=== PATIENT | male | born 1980 | race Caucasian/White ===

== ENCOUNTER 2019-12-29 23:29 | Emergency (ER) | payer BC, SELFPAY ==
--- NOTE | ~2019-12-29 | XR_ITS ---
EXAMINATION: XR chest 1V portable DATE: 12/30/2019 00:19 INDICATION: Palpitations. TECHNIQUE: A single frontal view of the chest was obtained. COMPARISON: None. FINDINGS: The chest demonstrates clear lungs without pneumonia, pleural effusion, or pneumothorax. Th e heart size is normal. IMPRESSION: 1. No acute cardiopulmonary disease. Reviewed, dictated and finalized at location A. [facility]
[2019-12-29 23:36] VITALS: BP 128/112; PULSE 90; RESP 16; TEMP 35.9; O2SAT 99
--- NOTE | 2019-12-29 23:40 | ED.ARRPALP ---
HPI - Arrhythmia/Palpitations General Chief Complaint: Arrhythmia/Palpitations Stated Complaint: irreg heart rate Time Seen by Provider: 12/29/19 23:37 Source: patient and RN notes reviewed Mode of arrival: ambulatory Limitations: no limitations History of Present Illness HPI narrative: Pt is a 39 y/o male who presents to the ED with c/o palpitations starting this evening. He notes that he was laying down this evening when his heart suddenly began fluttering. Pt denies any CP, SOB, or other symptoms accompanying his palpitations. He states that he has no Hx of thyroid complications. According to the nurse, he has had recent life stress and has consumed caffeine this evening. Pt denies any recent drug use. MD complaint: irregular heart beat Context: occurred during rest Associated symptoms: denies other symptoms Related Data Allergies Allergy/AdvReac Type Severity Reaction Status Date / Time No Known Allergies Allergy Verified 12/29/19 23:54 Review of Systems Review of Systems: Narrative: CONSTITUTIONAL: Denies fever, chills, or sweats. ENT: Denies rhinorrhea, congestion, sore throat, or otalgia. CARDIOVASCULAR: Denies chest pain or edema. Reports palpitations. RESPIRATORY: Denies cough or dyspnea. All systems reviewed & are unremarkable except as noted in HPI and below PMFSH Past Medical History Medical History Healthy adult male Surgical History Surgical History No significant past surgical history Social History Social History Substance use: never Exam Narrative: Exam Narrative: GENERAL: Well-appearing, well-nourished, and in no acute distress. HEAD: Normocephalic, atraumatic. EYES: PERRLA and EOMI. ENT: Nares clear, no rhinorrhea or epistaxis. Mucous membranes moist. NECK: Supple. CHEST: Clear to auscultation. No respiratory distress. HEART: Tachycardic and irregularly irregular rhythm. No murmur heard. Normal peripheral pulses. ABDOMEN: Soft, nontender, nondistended, normal active bowel sounds. EXTREMITIES: Normal range of motion. No edema. SKIN: Warm, dry, no rash. NEURO: No focal deficits. Alert and oriented. Course Course Emergency Course: The patient presented to the emergency department for evaluation of palpitations. At the time of initial assessment, ABCs are intact and vital signs are notable for tachycardia, rates in the 180s to 190s. Evidence of A. fib with RVR on EKG. No evidence of delta wave. Patient has no chest pain, shortness of breath or hypotension. Patient without history of arrhythmia in the past. No history of thyroid disease. Because the patient could pinpoint the timing of his symptoms exactly and was within a 48-hour window, and the patient has no other medical problems, shared decision-making occurred, decision was made to cardiovert the patient. Patient underwent moderate procedural sedation as described in the procedure note, and had a successful cardioversion on first attempt. Patient had no complications following procedural sedation and cardioversion. No electrolyte abnormalities. No leukocytosis. Cardiology was consulted, given recommendations for anticoagulation and rate control. Advise follow-up in office. Patient with borderline euthyroid versus hypothyroidism, and advised to follow-up with primary care provider for this. Patient remained hemodynamically stable in the emergency department without recurrence of arrhythmia. Consultations Consultation #1: Discussed case with fiber optic splicer, Dr. Contreras. Recommends Xarelto 20 mg and follow-up in the office. Date: 12/30/19 Time: 00:39 Consultation #2: Discussed again with Dr. Contreras. Advised to also place the pt on Metoprolol 25 mg BID. Date: 12/30/19 Time: 00:49 Vital Signs Vital signs: Vital Signs Temperature 35.9 C L 12/29/19 23:36 Pulse Rate 90 12/29/19 23:36 Respiratory Ra
[2019-12-29 23:43] VITALS: BP 138/102; PULSE 180; RESP 16; TEMP 36.6; O2SAT 97
[2019-12-29 23:46] VITALS: PULSE 191
[2019-12-29 23:50] VITALS: PULSE 188
--- NOTE | 2019-12-29 23:56 | ECG_ITS ---
Measurements Intervals [place] Rate: 189 P: VT: 0 QRS: -14 QRSD: 105 T: 10 QT: 243 QTc: 432 Interpretive Statements ATRIAL FIBRILLATION WITH RAPID VENTRICULAR RESPONSE INCOMPLETE RIGHT BUNDLE BRANCH BLOCK BORDERLINE R WAVE PROGRESSION, ANTERIOR LEADS CONSIDER INFERIOR INFARCT, AGE INDETERMINATE BORDERLINE ST ABNORMALITY- LATERAL LEADS BASELINE ARTIFACT- AVF ABNORMAL ECG Electronically Signed On 12-30-2019 9:02:35 OFFICE MOVER by Ga Mckenzie D.O.
--- NOTE | 2019-12-29 23:57 | PC.NURSE ---
VORB 50 mg fentanyl 5 mg etomidate 4 mg zofran
--- NOTE | 2019-12-29 23:59 | PC.NURSE ---
0000 4mg zofran ivp administered 0001 5 mg etomidate administered 0001 50 mcg fentanyl administered 0002 200 J shock administered w/ edp at bedside pt tolerated well and alert and oriented at this time.
[2019-12-30] VITALS (7 sets, daily range): BP systolic 121–146; BP diastolic 90–105; PULSE 91–187; RESP 12–19; TEMP 36.7–36.8; O2SAT 97–100
[2019-12-30] MEDS: SODIUM CHLORIDE 0.9% IV 1,000 ML 999 ML IV CONT (00:08)
[2019-12-30 00:19] LABS: Basophils Percent Auto 0.4 % (0.2-1.2); Eosinophils Absolute Auto 0.3 K/mm3 (0-0.3); Eosinophils Percent Auto 3.2 % (0-4.4); Hematocrit 45.9 % (42.0-52.0); Hemoglobin 15.3 g/dL (14.0-18.0); Immature Granulocyte Absolute 0.03 K/mm3 (0.00-0.031); Immature Granulocyte Percent A 0.3 % (0-0.5); Lymphocytes Absolute Auto 4.97 K/mm3 (0.9-3.2); Lymphocytes Percent Auto 47.3 % (18.3-44.2); Mean Corpuscular HGB Conc 33.3 g/dl (32-36); Mean Corpuscular Hemoglobin 30.4 pg (26-34); Mean Corpuscular Volume 91.1 fl (80-100); Monocytes Percent Auto 9.8 % (2.6-8.5); Neutrophils Absolute Auto 4.1 K/mm3 (1.3-6.7); Platelet Count Result 233 k/mm3 (150-375); Red Blood Count 5.04 M/mm3 (4.6-6.20); White Blood Count 10.5 K/mm3 (4.5-10.0)
[2019-12-30 00:24] LABS: INR 0.9; Prothrombin Time 11.9 Seconds (11.1-14.7)
[2019-12-30 00:25] LABS: Partial Thromboplastin Time 25.8 SECONDS (22.3-36.8)
[2019-12-30 00:27] LABS: Blood Urea Nitrogen 15 mg/dL (9-20); Calcium 9.3 mg/dL (8.4-10.2); Carbon Dioxide 27 mmol/L (22-30); Chloride 101 mmol/L (98-107); Estimated CRCL calculation 90 ml/min; Estimated Glomerular Filt Rate > 60; Glucose 110 mg/dL (75-110); Potassium 3.6 mmol/L (3.4-5.0); Sodium 143 mmol/L (137-145)
[2019-12-30] MEDS: RIVAROXABAN 20 MG TABLET PO (01:58)
[2019-12-30] MEDS: METOPROLOL SUCCINATE EXT REL 25 MG TABCR PO (01:58)
--- NOTE | 2019-12-30 02:07 | ECG_ITS ---
Measurements Intervals [place] Rate: 106 P: 36 MI: 128 QRS: -18 QRSD: 110 T: 13 QT: 333 QTc: 442 Interpretive Statements SINUS TACHYCARDIA INCOMPLETE RIGHT BUNDLE BRANCH BLOCK DELAYED PRECORDIAL R/S TRANSITION BORDERLINE T WAVE ABNORMALITY- INFERIOR LEADS ABNORMAL ECG Electronically Signed On 12-30-2019 6:55:45 DRAG DOWN by Ga Mckenzie D.O.
== END 2019-12-30 02:00 | disposition home or self-care (01) ==
PROVIDERS: Emergency Provider Emergency Medicine
DX: I48.0 Paroxysmal atrial fibrillation (principal); E03.9 Hypothyroidism, unspecified; R00.0 Tachycardia, unspecified
CPT/HCPCS: 36415; 71045; 80048; 84443; 85025; 85610; 85730; 92960; 93005; 99285; A9270; J2405; J3010; J7030

== ENCOUNTER 2024-05-20 21:14 | Observation (INO) | payer BC, SELFPAY ==
--- NOTE | ~2024-05-20 | XR_ITS ---
XR chest 2V Ordering provider: Zeyad Young MD History: 43 years Male with . cp . Comparison: December 30, 2019 FINDINGS: MEDIASTINUM: The cardiac silhouette is not enlarged. LUNGS: No infiltrates, effusions or pneumothorax. OTHER: No free air under the diaphragm. IMPRESSION: No acute cardiopulmonary pathology. Reviewed, dictated and finalized at location A.
[2024-05-20 21:16] VITALS: BP 142/106; PULSE 76; RESP 16; TEMP 36.7; O2SAT 100
--- NOTE | 2024-05-20 21:16 | ECG_ITS ---
Test Date: 2024-05-20 21:24:37 Measurements Intervals [place] Rate: 184 P: 0 DC: 0 QRS: -16 QRSD: 102 T: 16 QT: 243 QTc: 425 Interpretive Statements ATRIAL FIBRILLATION WITH RAPID VENTRICULAR RESPONSE INCOMPLETE RIGHT BUNDLE BRANCH BLOCK DELAYED PRECORDIAL R/S TRANSITION CONSIDER INFERIOR INFARCT, AGE INDETERMINATE BORDERLINE ST-T WAVE ABNORMALITY- LAT/HIGH LAT LEADS BASELINE WANDER- II, III ABNORMAL ECG No previous ECG available for comparison Electronically Signed On 05-21-2024 05:52:03 CDT by Ga Mckenzie D.O.
[2024-05-20 21:30] VITALS: BP 123/98; PULSE 168; RESP 14; TEMP 36.7; O2SAT 96
[2024-05-20 21:31] VITALS: O2SAT 95
[2024-05-20] MEDS: dilTIAZem HCl INJ 25 MG/5 ML VIAL 20 MG IV PUSH ×2 (21:34→22:43)
[2024-05-20 21:35] VITALS: BP 123/98; PULSE 178
[2024-05-20] MEDS: dilTIAZem 100 MG/100 ML 100 MG/100 ML BAG IV CONT (21:35)
[2024-05-20 21:40] LABS: Basophils Percent Auto 0.4 % (0.2-1.2); Eosinophils Absolute Auto 0.2 K/mm3 (0-0.3); Eosinophils Percent Auto 2.8 % (0-4.4); Hematocrit 44.4 % (42.0-52.0); Hemoglobin 15.4 g/dL (14.0-18.0); Immature Granulocyte Absolute 0.02 K/mm3 (0.00-0.031); Immature Granulocyte Percent A 0.2 % (0-0.5); Lymphocytes Absolute Auto 3.39 K/mm3 (0.9-3.2); Lymphocytes Percent Auto 41.2 % (18.3-44.2); Mean Corpuscular HGB Conc 34.7 g/dl (32-36); Mean Corpuscular Hemoglobin 31.6 pg (26-34); Mean Platelet Volume 10.4 fl (7.4-10.4); Monocytes Absolute Auto 0.7 K/mm3 (0.1-0.6); Monocytes Percent Auto 8.5 % (2.6-8.5); Neutrophils Absolute Auto 3.9 K/mm3 (1.3-6.7); Neutrophils Percent Auto 46.9 % (45.5-73.1); Platelet Count Result 223 k/mm3 (150-375); Red Blood Count 4.88 M/mm3 (4.6-6.20); Red Cell Distribution Width 12.9 % (11.5-14.5); White Blood Count 8.2 K/mm3 (4.5-10.0)
[2024-05-20 21:49] LABS: Alanine Aminotransferase 46 U/L (6-50); Albumin Level 4.6 g/dL (3.5-5.1); Alkaline Phosphatase 63 U/L (38-126); Anion Gap 11 mmol/L (4-12); Aspartate Amino Transferase 39 U/L (17-59); Bilirubin,Total 0.5 mg/dL (0.2-1.3); Blood Urea Nitrogen 14 mg/dL (9-20); Calcium 9.1 mg/dL (8.4-10.2); Carbon Dioxide 23 mmol/L (22-30); Chloride 107 mmol/L (98-107); Estimated CRCL calculation 89 ml/min; Estimated Glomerular Filt Rate > 60; Glucose 98 mg/dL (65-110); Lipase 144 U/L (23-300); Magnesium 2.1 mg/dL (1.6-2.3); Potassium 3.7 mmol/L (3.4-5.0); Sodium 141 mmol/L (137-145)
--- NOTE | 2024-05-20 21:52 | ED.GENADULT ---
HPI - General Adult General Chief complaint: Arrhythmia/Palpitations Stated complaint: palpations Time Seen by Provider: 05/20/24 21:29 History of Present Illness HPI narrative: patient is a 43-year-old gentleman who presents emergency department with chief complaint of palpitations. The patient reports he has prior history of an episode of atrial fibrillation reports that he was treated with cardioversion at that time and anticoagulants and metoprolol. The patient reports that currently not on anticoagulant and also has been off of the metoprolol. The patient states this evening he felt as though he started having irregular feeling as chest and felt his heart start racing. The patient reports no syncope denies chest pain. The patient reports that he had an episode of AFib in 2019 is currently not on any dysrhythmia medication and is currently not on Anticoagulants. Related Data Home Medications Medication Instructions Recorded Confirmed No Home Medications 05/20/24 Allergies Allergy/AdvReac Type Severity Reaction Status Date / Time No Known Allergies Allergy Verified 05/20/24 21:21 Review of Systems Review of Systems: A 10 system review of systems was completed on the patient and is negative except for what is stated in the HPI. Nursing and ancillary documentation was reviewed. [facility] Past Medical History Medical History Atrial fibrillation Hypothyroidism Surgical History Surgical History H/O arthroscopic knee surgery (~1997) No significant past surgical history Family History Family History Father S/P CABG x 5 Mother S/P CABG x 3 Social History Social History Social History: Drinks 3 cups of Soda/caffeine per day Smoking status: Never smoker Second hand tobacco smoke exposure: No Alcohol intake: current Alcohol use details: pt states he drinks socially and very infrequent Substance use: never Occupation/Education: occupation Gender identity (if verbalized by the patient): Male Spiritual care concerns: No Exam Narrative: GENERAL: Well-appearing, well-nourished, and in no acute distress. HEAD: Normocephalic, atraumatic. EYES: PERRLA and EOMI. ENT: Nares clear, no rhinorrhea or epistaxis. Mucous membranes moist. NECK: Supple. CHEST: Clear to auscultation. No respiratory distress. HEART: Tachycardic rate and irregular rhythm. No murmur heard. Normal peripheral pulses. ABDOMEN: Soft, nontender, nondistended, normal active bowel sounds. EXTREMITIES: Normal range of motion. No edema. SKIN: Warm, dry, no rash. NEURO: No focal deficits. Alert and oriented x3. PSYCH: Normal mood and affect. Course Vital Signs Vital signs: Vital Signs Temperature 36.7 C 05/20/24 21:16 Pulse Rate 76 05/20/24 21:16 Respiratory Rate 16 05/20/24 21:16 Blood Pressure 142/106 H 05/20/24 21:16 Pulse Oximetry 100 05/20/24 21:16 Oxygen Delivery Room Air 05/20/24 21:16 Temperature 36.7 C 05/20/24 21:30 Pulse Rate 150 H 05/20/24 22:07 Respiratory Rate 14 05/20/24 21:30 Blood Pressure 124/99 H 05/20/24 22:07 Pulse Oximetry 95 05/20/24 21:31 Oxygen Delivery Room Air 05/20/24 21:31 Medical Decision Making [facility] Narrative Medical decision making narrative: differential diagnosis includes atrial fibrillation with rapid ventricular response, dysrhythmia, electrolyte abnormality, laboratory studies were obtained showed a white count of 8.2 electrolytes within normal limits potassium was 3.7 TSH was 5.560 troponin was negative the patient was treated with a Cardizem bolus the started on a Cardizem drip the patient was rebolused as he was still be maintaining tachycardia Vital Signs Vital Signs
[2024-05-20 21:57] LABS: INR 0.9; Partial Thromboplastin Time 24.2 Seconds (22.3-36.8); Prothrombin Time 12.4 Seconds (11.1-14.7)
[2024-05-20 22:01] LABS: Troponin I < 0.012 ng/mL (0.000-0.034)
[2024-05-20 22:07] VITALS: BP 124/99; PULSE 150
[2024-05-20] MEDS: ASPIRIN 81 MG CHEWABLE TABLET 324 MG PO (22:27)
[2024-05-20 23:05] VITALS: BP 128/89; PULSE 111; RESP 15; O2SAT 97
--- NOTE | 2024-05-20 23:16 | PM.IMHP ---
H&P: HPI History of Present Illness Date/Time: 05/20/24 23:16 Chief Complaint: Palpitations Narrative: 43 y/o M presents here with palpitations with PMH of AFib. The patient presents here with palpitations. Developed palpitations this evening while he was throwing balls to his child for batting practice. Describes it as his heart racing and fluttering. No associated chest pain, dizziness, syncope, presyncope, diaphoresis, or shortness of breath. The patient has a history of atrial fibrillation in 2019 which he was cardioverted for and subsequently put on metoprolol and Xarelto. Patient's multi skilled operator discontinued the metoprolol and Xarelto, has been off the metoprolol for the past year. Denies excessive caffeine intake. Has previously had an elevated TSH but when later repeated was normal. Initial VS at presentation: 98? F, HR 76, R 16, 142/106, and 100% on RA. ED workup showed: No leukocytosis, no anemia, normal coags, no significant electrolyte derangements, creatinine 1.2 and GFR >60, initial troponin negative, TSH 5.56. CXR showed no acute cardiopulmonary pathology. Initial EKG showed AFib RVR with a rate of 184. Review of Systems Review of Systems: All systems reviewed & are unremarkable except as noted in HPI and below PMFSH Past Medical History Medical History (Updated 05/20/24 @ 23:58 by Yazmin Soria APRN) Atrial fibrillation Surgical History Surgical History (Updated 05/20/24 @ 23:20 by Yazmin Soria APRN) H/O arthroscopic knee surgery (~1997) Family History Family History Father S/P CABG x 5 Mother S/P CABG x 3 Social History Social History Social History: Drinks 3 cups of Soda/caffeine per day Smoking status: Never smoker Second hand tobacco smoke exposure: No Alcohol intake: current Alcohol use details: pt states he drinks socially and very infrequent Substance use: never Occupation/Education: occupation Gender identity (if verbalized by the patient): Male Spiritual care concerns: No Meds Home Medications and Allergies Home Medications Medication Instructions Recorded Confirmed Type No Home Medications 05/20/24 History Allergies Allergy/AdvReac Type Severity Reaction Status Date / Time No Known Allergies Allergy Verified 05/20/24 21:21 Vital Signs Vital Signs - 24 hr 05/20/24 21:16 05/20/24 21:30 05/20/24 21:31 Temperature 98.0 F 98.1 F Pulse Rate 76 168 H Respiratory Rate 16 14 Blood Pressure 142/106 H 123/98 H Pulse Oximetry 100 96 95 Oxygen Delivery Room Air Room Air 05/20/24 21:35 05/20/24 22:07 05/20/24 23:05 Temperature Pulse Rate 178 H 150 H 111 H Respiratory Rate 15 Blood Pressure 123/98 H 124/99 H 128/89 Pulse Oximetry 97 Oxygen Delivery Exam Const: General: comfortable and no acute distress Other: , male, nontoxic appearance HENMT: Face/Nose/Sinus: Normal nares present Mouth: Yes moist mucous membranes Eyes: General: appearance normal, both eyes and all related structures Sclera: sclerae normal Pupils: Equal, round and reactive pupils present EOM: EOMs intact bilaterally Resp: Effort & Inspection: normal respiratory effort Auscultation: clear to auscultation bilaterally Cardio: Rate: tachycardic Rhythm: abnormal rhythm Other: no discernible murmur. GI: Other: Abdomen soft, nondistended, nontender Skin: General skin exam: normal color and no rashes or lesions noted Wounds: no wounds Neuro: General: gait normal Speech: normal speech Motor exam (neuro): 5/5 motor strength present throughout Sensory Exam: normal sensation Other: A&O x4 Extrem: General: normal to inspection Psych: Mental Status: mental status grossly normal Affect: normal affect Other: good insight and judgment, pleasant H&P: Result
[2024-05-21] VITALS (15 sets, daily range): BP systolic 104–128; BP diastolic 74–88; PULSE 54–176; RESP 14–20; TEMP 36.5–36.8; O2SAT 97–100; BMI 34.7
--- NOTE | 2024-05-21 | ECHO_ITS ---
Patient Info Name: Krishan Loyd Age: 43 years : 1980 Gender: Male Ht: 71 in Wt: 250 lbs BSA: 2.42 m2 HR: 64 bpm BP: 104 / 77 mmHg Heart Rhythm: Sinus Rhythm Technical Quality: Good Exam Date: 05/21/2024 11:04 AM Exam Location: Echo Lab Patient Status: Inpatient Admit Date: 05/20/2024 Staff Ordering Physician: Yuki Martini [employer] Operator: Isatu Logan RDCS Attending Provider: Mora Mccain DO Referring Physician: Lianet IBARRA; Exam Type: CA echo doppler color flow Study Info Indications - a fib Complete two-dimensional, color flow and Doppler transthoracic echocardiogram is performed. Summary 1. Complete two-dimensional, color flow and Doppler transthoracic echocardiogram is performed. 2. Normal left ventricular size, thickness and systolic function with grade 1 diastolic noncompliance. 3. Small amount of pulmonic valve insufficiency. Left Ventricle Left ventricular chamber dimension is normal. Left ventricular systolic function is normal, estimated at 60-65%. The left ventricular diastolic function is grade I diastolic dysfunction. Right Ventricle Right ventricular chamber dimension is normal. Left Atria Left atrial chamber dimension is normal. Right Atria Right atrial chamber dimension is normal. Aortic Valve The aortic valve is normal. Pulmonic Valve The pulmonic valve is normal. There is mild pulmonic regurgitation. Mitral Valve The mitral valve has normal leaflets. Tricuspid Valve The tricuspid valve leaflets are normal. Pericardium/Pleural The pericardium appears normal. Aorta The aortic root size at the sinus of Valsalva is normal. Left Ventricular Outflow Tract Name Value Normal LVOT 2D LVOT Diameter 2.1 cm LVOT Doppler LVOT Peak Gradient 4 mmHg LVOT Mean Gradient 2 mmHg LVOT VTI 23 cm LVOT VTI/AV VTI Ratio 0.9 LVOT Stroke Volume 81 ml LVOT CO 5.0 l/min LVOT CI 2.1 l/min/m2 Pulmonic Valve Name Value Normal PV Doppler PV Peak Gradient 2 mmHg Mitral Valve Name Value Normal MV Doppler MV Decel Dare 238 cm/s2 MV PHT 71 ms MV Area (PHT) 3.1 cm2 4.0-5.0 MV Diastolic Function MV E Peak Velocity 58 cm/s MV A Peak Velocity 50 cm/s MV E/A 1.2 MV Decel Time
[2024-05-21] MEDS: dilTIAZem HCl INJ 25 MG/5 ML VIAL 20 MG IV PUSH (00:16)
--- NOTE | 2024-05-21 00:52 | ADMGEN ---
This patient, Krishan Loyd, was admitted to IMU Room 210-01. Patient/family oriented to hospital policies and general routines including ID bracelet, bed and alarms, visiting hours, pain management, procedures, bathroom and other care routines, personal items, smoking policy, room service/diet, and visiting hours. Information on how to activate the Rapid Response Team has been discussed. Patient/Family are encouraged to report perceived risks to care and to ask questions if they do not understand what they are told or what they should do.
[2024-05-21 04:02] LABS: NT Pro B Type Natriuretic Pept 136 pg/mL (19.9-100); Troponin I 0.018 ng/mL (0.000-0.034)
[2024-05-21 04:12] LABS: Free T4 Free Thyroxine 1.09 ng/mL (0.78-2.19)
[2024-05-21 04:21] LABS: Basophils Percent Auto 0.4 % (0.2-1.2); Eosinophils Absolute Auto 0.2 K/mm3 (0-0.3); Eosinophils Percent Auto 2.9 % (0-4.4); Hematocrit 43.8 % (42.0-52.0); Hemoglobin 14.6 g/dL (14.0-18.0); Immature Granulocyte Absolute 0.03 K/mm3 (0.00-0.031); Immature Granulocyte Percent A 0.4 % (0-0.5); Lymphocytes Absolute Auto 3.46 K/mm3 (0.9-3.2); Lymphocytes Percent Auto 42.1 % (18.3-44.2); Mean Corpuscular HGB Conc 33.3 g/dl (32-36); Mean Corpuscular Hemoglobin 30.7 pg (26-34); Mean Platelet Volume 10.3 fl (7.4-10.4); Monocytes Absolute Auto 0.7 K/mm3 (0.1-0.6); Monocytes Percent Auto 7.9 % (2.6-8.5); Neutrophils Absolute Auto 3.8 K/mm3 (1.3-6.7); Neutrophils Percent Auto 46.3 % (45.5-73.1); Platelet Count Result 219 k/mm3 (150-375); Red Blood Count 4.76 M/mm3 (4.6-6.20); White Blood Count 8.2 K/mm3 (4.5-10.0)
[2024-05-21 04:46] LABS: Anion Gap 11 mmol/L (4-12); Blood Urea Nitrogen 14 mg/dL (9-20); Calcium 8.7 mg/dL (8.4-10.2); Carbon Dioxide 24 mmol/L (22-30); Chloride 105 mmol/L (98-107); Estimated CRCL calculation 89 ml/min; Estimated Glomerular Filt Rate > 60; Glucose 93 mg/dL (65-110); Sodium 140 mmol/L (137-145)
--- NOTE | 2024-05-21 07:55 | ECG_ITS ---
Test Date: 2024-05-21 08:08:06 Measurements Intervals [place] Rate: 66 P: -2 MA: 143 QRS: -10 QRSD: 113 T: 9 QT: 398 QTc: 418 Interpretive Statements SINUS RHYTHM INCOMPLETE RIGHT BUNDLE BRANCH BLOCK BORDERLINE ECG Compared to ECG 05/20/2024 21:24:37 Atrial fibrillation no longer present Electronically Signed On 05-21-2024 08:16:06 CDT by Ga Mckenzie D.O.
--- NOTE | 2024-05-21 08:44 | PM.CNCAR ---
Assessment and Plan Assessment and plan (1) Atrial fibrillation with RVR: Code(s): I48.91 - Unspecified atrial fibrillation Status: Acute Assessment and Plan: Paroxysmal atrial fibrillation previously treated with DC cardioversion and metoprolol. He presents now with symptomatic recurrence of atrial fibrillation with rapid ventricular response. He spontaneously converted to sinus rhythm on IV diltiazem and is now asymptomatic. I am going to shift him from IV diltiazem to p.o. diltiazem. He has a CHADS2 Vasc score of 0, so anticoagulation is not indicated. Check a 2D echo with Doppler. From my perspective, okay to discharge later today if his rhythm remains stable. Outpatient EP referral. He should follow up in our office with Dr. Napier in 4-6 weeks. History of Present Illness History of Present Illness Consult date/time: 05/21/24 08:44 Requesting physician: Yazmin Soria APRN Consult reason: atrial fibrillation Reason For Visit: Atrial fibrillation with rapid ventricular respons Narrative: Krishan Loyd is a 43-year-old male with paroxysmal atrial fibrillation, status post DC cardioversion on 12/30/2019. Following this, he was seen in our office by Dr. Napier in till August of 2023 at which point he had not had any recurrence of atrial fibrillation and was told that because of this he only needed to be seen on as-needed basis. He had been taking metoprolol but had discontinued this because he had not had any recurrent arrhythmias. He comes to the hospital now with a chief complaint of palpitations. He was found to be in atrial fibrillation with rapid ventricular response. He was placed on a diltiazem drip and did convert spontaneously to sinus rhythm this morning. At the time of my evaluation he is asymptomatic and has no complaints. Review of Systems Constitutional: Constitutional: Denies chills, Denies fever(s), Denies headache(s) and Denies malaise Eyes: Eyes: Denies change in vision ENT: Reports Normal hearing present, Denies dizziness, Denies headache(s) and Denies hearing loss Cardiovascular: Cardiovascular: Reports as per HPI, Denies chest pain, Denies chest pain at rest, Denies chest pain with activity, Denies syncope, Denies leg edema, Reports palpitations, Denies dyspnea and Denies dyspnea on exertion Respiratory: Respiratory: Denies cough, Denies dyspnea, Denies dyspnea on exertion and Denies wheezing Gastrointestinal: Gastrointestinal: Denies abdominal pain, Denies constipation and Denies diarrhea Genitourinary: Genitourinary: Denies hematuria and Denies dysuria Musculoskeletal: Musculoskeletal: Denies myalgias, Denies arthralgias and Denies muscle cramps Integumentary/Breasts: Skin/Breast: Denies wounds Neurologic: Reports Normal hearing present, Denies confusion, Denies dizziness, Denies syncope and Denies headache(s) Psychiatric: Psychiatric: Denies anxiety, Denies confusion and Denies depression Endocrine: Endocrine: Denies cold intolerance, Denies flushing, Denies heat intolerance and Denies palpitations Hematologic/Lymphatic: Hematologic/Lymphatic: Denies easy bleeding and Denies easy bruising Allergic/Immunologic: Allergic/Immunologic: Denies wheezing PMFSH Past Medical History Medical History Atrial fibrillation Surgical History Surgical History H/O arthroscopic knee surgery (~1997) Family History Family History Father S/P CABG x 5 Mother S/P CABG x 3 Social History Social History Social History: Drinks 3 cups of Soda/caffeine per day Smoking status: Never smoker Second hand tobacco smoke exposure: No Alcohol intake: current Alcohol use details: pt states he drinks socially and very infrequent Substance use: never Do You Feel Safe in you
[2024-05-21] MEDS: dilTIAZem HCL CD 120 MG CAP.24HR PO (09:59)
--- NOTE | 2024-05-21 12:29 | PM.DS ---
DS: Admitting Diagnosis Discharge Date May 21, 2024 Admitting Diagnosis Palpitation DS: Discharge Diagnosis Discharge Diagnosis (1) Atrial fibrillation with RVR: Code(s): I48.91 - Unspecified atrial fibrillation Status: Acute (2) Obesity: Code(s): E66.9 - Obesity, unspecified Status: Acute DS: Summary Hospital Course Hospital Course: 43-year-old male H obesity, atrial fibrillation follows with Dr. Napier previously. He is status post DC cardioversion 12/30/2019. Previously on metoprolol and xarelto, now off. He was playing catch with his child on the evening of admission 05/20/2024 he began to experience palpitations. EKG on admission [facility] 05/20/2024 at 9:00 p.m. revealed AFib with RVR to the 180s. Placed on diltiazem GTT. Admitted. On 05/21/2020 for the patient spontaneous converted. Diltiazem GTT discontinue and diltiazem 120 mg p.o. q.a.m. started. He remained in sinus rhythm. Blood pressure 126/82. His symptomatology resolved as well. Chest x-ray without acute abnormalities. Surface echocardiogram obtained. ChADS2 score 0. Patient discharged in stable condition to home on 05/21/2024. Adverse effects, risk and benefits of medication discussed with the patient. present for this discussion. He is also advised to follow with Dr. Napier and his PCP to which he agreed. The patient was full code. Time Spent with Patient Time attestation: Total time spent providing and/or coordinating discharge services: Exam Const: General: comfortable and no acute distress Eyes: Pupils: Equal, round and reactive pupils present Neck: Neck: supple Resp: Effort & Inspection: normal respiratory effort Auscultation: clear to auscultation bilaterally Cardio: Rate: regular rate Rhythm: regular rhythm GI: GI Palp: Yes Soft to palpation and No Tenderness to palpation present (GI) Extrem: General: no edema DS: Data Data Completed and Pending Labs on day of discharge: Labs from last 24 hours 05/21/24 05/21/24 05/21/24 04:04 01:40 01:37 WBC 8.2 RBC 4.76 Hgb 14.6 Hct 43.8 MCV 92.0 MCH 30.7 MCHC 33.3 RDW 13.0 Plt Count 219 MPV 10.3 Immature Gran % (Auto) 0.4 Neut % (Auto) 46.3 Lymph % (Auto) 42.1 [place] % (Auto) 7.9 Eos % (Auto) 2.9 Baso % (Auto) 0.4 Lymph # (Auto) 3.46 H [place] # (Auto) 0.7 H Eos # (Auto) 0.2 Baso # (Auto) 0.0 Abs Immat Gran (auto) 0.03 Absolute Neuts (auto) 3.8 Absolute Nucleated RBC 0.000 Nucleated RBC % 0.0 PT INR APTT Sodium 140 Potassium 4.0 Chloride 105 Carbon Dioxide 24 Anion Gap 11 BUN 14 Creatinine 1.20 Estim Creat Clear Calc 89 Estimated GFR > 60 Glucose 93 Calcium 8.7 Magnesium Total Bilirubin AST ALT Alkaline Phosphatase Troponin I 0.030 D 0.018 D NT-Pro-B Natriuret Pep 136 H Total Protein Albumin Lipase TSH Free T4 1.09 Free T3 pg/mL Pending 05/20/24 05/20/24 05/20/24 21:33 21:33 21:33 WBC 8.2 RBC 4.88 Hgb 15.4 Hct 44.4 MCV 91.0 MCH 31.6 MCHC 34.7 RDW 12.9 Plt Count 223 MPV 10.4 Immature Gran % (Auto) 0.2 Neut % (Auto) 46.9 Lymph % (Auto) 41.2 [place] % (Auto) 8.5 Eos % (Auto) 2.8 Baso % (Auto) 0.4 Lymph # (Auto) 3.39 H [place] # (Auto) 0.7 H Eos # (Auto) 0.2 Baso # (Auto) 0.0 Abs Immat Gran (auto) 0.02 Absolute Neuts (auto) 3.9 Absolute Nucleated RBC 0.000 Nucleated RBC % 0.0 PT 12.4 INR 0.9 APTT 24.2 Sodium 141 Potassium 3.7 Chloride 107 Carbon Dioxide 23 Anion Gap 11 BUN 14 Creatinine 1.20 Estim Creat Clear Calc 89 Estimated GFR > 60 Glucose 98 Calcium 9.1 Magnesium Cancelled 2.1 Total Bilirubin 0.5 AST 39 ALT 46 Alkaline Phosphatase 63 Troponin I < 0.012 NT-Pro-B Natriuret Pep Total Protein 8.0 Albumin 4.6
[2024-05-28 08:15] LABS: T3 Free 3.8 pg/mL
== END 2024-05-21 13:25 | disposition home or self-care (01) ==
LOC: ANHED 23:02 → ANHIMU 05-21 12:29
PROVIDERS: Student in an Organized Health Care Education/Training Program; Admitting Provider Internal Medicine; Emergency Provider Emergency Medicine; PCP Nurse Practitioner; Visit Provider General Practice
DX: I48.91 Unspecified atrial fibrillation (principal); E03.9 Hypothyroidism, unspecified; E66.9 Obesity, unspecified; Z68.35 Body mass index [BMI] 35.0-35.9, adult
CPT/HCPCS: 36415; 71046; 80048; 80053; 83690; 83735; 83880; 84439; 84443; 84480; 84484; 85025; 85610; 85730; 93005; 93306; 96365; 96366; 99285; A9270; G0378

== ENCOUNTER 2025-01-02 22:07 | Emergency (ER) | payer BC, SELFPAY ==
[2025-01-02] VITALS (10 sets, daily range): BP systolic 109–171; BP diastolic 82–94; PULSE 108–134; RESP 13–22; TEMP 36.1–36.9; O2SAT 95–100
[2025-01-02 22:34] LABS: Basophils Percent Auto 0.4 % (0.2-1.2); Eosinophils Absolute Auto 0.2 K/mm3 (0-0.3); Hemoglobin 14.3 g/dL (14.0-18.0); Immature Granulocyte Absolute 0.02 K/mm3 (0.00-0.031); Immature Granulocyte Percent A 0.2 % (0-0.5); Lymphocytes Percent Auto 46.7 % (18.3-44.2); Mean Corpuscular Hemoglobin 31.3 pg (26-34); Mean Corpuscular Volume 91.9 fl (80-100); Mean Platelet Volume 10.5 fl (7.4-10.4); Monocytes Absolute Auto 0.9 K/mm3 (0.1-0.6); Monocytes Percent Auto 11.1 % (2.6-8.5); Neutrophils Absolute Auto 3.3 K/mm3 (1.3-6.7); Neutrophils Percent Auto 39.6 % (45.5-73.1); Platelet Count Result 242 k/mm3 (150-375); Red Blood Count 4.57 M/mm3 (4.6-6.20); Red Cell Distribution Width 13.4 % (11.5-14.5); White Blood Count 8.4 K/mm3 (4.5-10.0)
[2025-01-02 22:47] LABS: Alanine Aminotransferase 41 U/L (6-50); Albumin Level 4.5 g/dL (3.5-5.1); Alkaline Phosphatase 67 U/L (38-126); Anion Gap 13 mmol/L (4-12); Aspartate Amino Transferase 30 U/L (17-59); Bilirubin,Total 0.6 mg/dL (0.2-1.3); Blood Urea Nitrogen 18 mg/dL (9-20); Calcium 9.3 mg/dL (8.4-10.2); Carbon Dioxide 23 mmol/L (22-30); Chloride 107 mmol/L (98-107); Estimated CRCL calculation 82 ml/min; Estimated Glomerular Filt Rate > 60; Glucose 118 mg/dL (65-110); Lipase 155 U/L (23-300); Potassium 3.7 mmol/L (3.4-5.0); Sodium 143 mmol/L (137-145)
[2025-01-02 22:48] LABS: Prothrombin Time 13.2 Seconds (11.1-14.7)
[2025-01-02 22:49] LABS: Partial Thromboplastin Time 24.1 Seconds (22.3-36.8)
[2025-01-02 22:58] LABS: Troponin I < 0.012 ng/mL (0.000-0.034)
[2025-01-02 23:25] LABS: Magnesium 2.1 mg/dL (1.6-2.3)
--- NOTE | 2025-01-03 00:42 | ED.GENADULT ---
HPI - General Adult General Chief complaint: Arrhythmia/Palpitations Stated complaint: i think i put myself into a rythm Time Seen by Provider: 01/02/25 22:34 History of Present Illness HPI narrative: Patient is a 44-year-old gentleman presents emergency department with chief complaint of palpitations. Patient reports he has prior history of AFib this reports that he has had 3 other episodes in tonight was exercising and felt his heart rate go up into the 150s. The patient reports that once he arrived here his heart rate was in the 150s and then suddenly returned back to normal. Patient denies chest pain denies shortness of breath Related Data Allergies Allergy/AdvReac Type Severity Reaction Status Date / Time No Known Allergies Allergy Verified 05/21/24 01:14 Review of Systems Review of Systems: A 10 system review of systems was completed on the patient and is negative except for what is stated in the HPI. Nursing and ancillary documentation was reviewed. PMFSH Past Medical History Medical History Atrial fibrillation Surgical History Surgical History H/O arthroscopic knee surgery (~1997) Family History Family History Father S/P CABG x 5 Mother S/P CABG x 3 Social History Social History Social History: Drinks 3 cups of Soda/caffeine per day Smoking status: Never smoker Second hand tobacco smoke exposure: No Alcohol intake: never Alcohol use details: pt states he drinks socially and very infrequent Substance use: never Do You Feel Safe in your Home?: Yes Lack of Transportation: No Lack of Food: Never True Current Housing: I Have Housing Concerned About Future Housing: No Difficulty Paying Gas/Electric Bills: No Difficulty Paying for Meds: No Currently Unemployed: No Education: Bachelor's Degree Difficulty w/ Childcare or Family Care: No Occupation/Education: occupation Gender identity (if verbalized by the patient): Male Spiritual care concerns: No Exam Narrative: GENERAL: Well-appearing, well-nourished, and in no acute distress. HEAD: Normocephalic, atraumatic. EYES: PERRLA and EOMI. ENT: Nares clear, no rhinorrhea or epistaxis. Mucous membranes moist. NECK: Supple. CHEST: Clear to auscultation. No respiratory distress. HEART: Regular rate and rhythm. No murmur heard. Normal peripheral pulses. ABDOMEN: Soft, nontender, nondistended, normal active bowel sounds. EXTREMITIES: Normal range of motion. No edema. SKIN: Warm, dry, no rash. NEURO: No focal deficits. Alert and oriented x3. PSYCH: Normal mood and affect. Course Vital Signs Vital signs: Vital Signs Temperature 36.1 C L 01/02/25 22:10 Pulse Rate 134 H 01/02/25 22:10 Respiratory Rate 16 01/02/25 22:10 Blood Pressure 109/82 01/02/25 22:10 Pulse Oximetry 99 01/02/25 22:10 Oxygen Delivery Room Air 01/02/25 22:10 Temperature 36.9 C 01/02/25 22:19 Pulse Rate 112 H 01/02/25 23:01 Respiratory Rate 13 01/02/25 23:01 Blood Pressure 133/88 01/02/25 23:01 Pulse Oximetry 97 01/02/25 23:01 Oxygen Delivery Room Air 01/02/25 22:21 Medical Decision Making MDM Narrative Medical decision making narrative: Differential diagnosis includes electrolyte abnormality, hypothyroidism, hyperthyroidism, dysrhythmia, Patient's initial EKG showed atrial fibrillation with rapid ventricular response The patient then spontaneously converted and heart rate was in the 110s with sinus rhythm. Currently the patient is a heart rate of 90 in sinus rhythm Laboratory studies were obtained which showed a normal CBC CMP showed a potassium of 3.7 creatinine was 1.2 magnesium was 2.1 troponin was negative TSH was elevated at 7.30. Case was discussed with the patient's on-call mud trucker who recommended follow-up and the patient will be started on a daily aspirin the patient was instructed to take his Cardizem and follow-up with his mud trucker. The patient was also informed of the elevated TSH and recommended follow-up Vital Signs Vital Signs: Vital Signs Temperature 36.1 C L 01/02/25 22:10 Pulse Rate 134 H 01/02/25 22:10 Respiratory Rate 16 01/02/25 22:10 Blood Pressure 109/82 01/02/25 22:10 Pulse Oximetry 99 01/02/25 22:10 Oxygen Delivery Room Air 01/02/25 22:10 Temperature 36.9 C 01/02/25 22:19 Pulse Rate 112 H 01/02/25 23:01 Respiratory Rate 13 01/02/25 23:01 Blood Pressure 133/88 01/02/25 23:01 Pulse Oximetry 97 01/02/25 23:01 Oxygen Delivery Room Air 01/02/25 22:21 Lab Data 01/02/25 22:24 01/02/25 22:24 Labs: Lab Results 01/02/25 Range/Units 22:24 WBC 8.4 (4.5-10.0) K/mm3 RBC 4.57 L (4.6-6.20) M/mm3 Hgb 14.3 (14.0-18.0) g/dL Hct 42.0 (42.0-52.0) % MCV 91.9 (80-100) fl MCH 31.3 (26-34) pg MCHC 34.0 (32-36) g/dl RDW 13.4 (11.5-14.5) % Plt Count 242 (150-375) k/mm3 MPV 10.5 H (7.4-10.4) fl Immature Gran % (Auto) 0.2 (0-0.5) % Neut % (Auto) 39.6 L (45.5-73.1) % Lymph % (Auto) 46.7 H (18.3-44.2) % [place] % (Auto) 11.1 H (2.6-8.5) % Eos % (Auto) 2.0 (0-4.4) % Baso % (Auto) 0.4 (0.2-1.2) % Lymph # (Auto) 3.90 H (0.9-3.2) K/mm3 [place] # (Auto) 0.9 H (0.1-0.6) K/mm3 Eos # (Auto) 0.2 (0-0.3) K/mm3 Baso # (Auto) 0.0 (0.0-0.1) K/mm3 Abs Immat Gran (auto) 0.02 (0.00-0.031) K/mm3 Absolute Neuts (auto) 3.3 (1.3-6.7) K/mm3 Absolute Nucleated RBC 0.000 (0.0-0.012) K/mm3 Nucleated RBC % 0.0 (0.0-0.2) % PT 13.2 (11.1-14.7) Seconds INR 1.0 APTT 24.1 (22.3-36.8) Seconds Sodium 143 (137-145) mmol/L Potassium 3.7 (3.4-5.0) mmol/L Chloride 107 (98-107) mmol/L Carbon Dioxide 23 (22-30) mmol/L Anion Gap 13 H (4-12) mmol/L BUN 18 (9-20) mg/dL Creatinine 1.26 (0.7-1.3) mg/dL Estim Creat Clear Calc 82 ml/min Estimated GFR > 60 (59 - ) Glucose 118 H (65-110) mg/dL Calcium 9.3 (8.4-10.2) mg/dL Magnesium 2.1 (1.6-2.3) mg/dL Total Bilirubin 0.6 (0.2-1.3) mg/dL AST 30 (17-59) U/L ALT 41 (6-50) U/L Alkaline Phosphatase 67 (38-126) U/L Troponin I < 0.012 (0.000-0.034) ng/mL Total Protein 8.0 (6.3-8.2) g/dL Albumin 4.5 (3.5-5.1) g/dL Lipase 155 (23-300) U/L TSH (Reflex) 7.300 H (0.465-4.68) uIU/mL Free T4 Pending Discharge Plan Discharge Clinical Impression: Atrial fibrillation with RVR Patient Disposition: Home, Self-Care Condition: Stable Instructions: Antibiotic Form, A-fib (Atrial Fibrillation) (ED) Additional Instructions: You have spontaneously converted back into sinus rhythm. Your TSH is elevated at 7.3 this could mean that you have hypothyroidism. Please follow-up with your primary care provider as you may need additional testing please take an aspirin daily and please resume taking your Cardizem Please follow-up with your mud trucker as soon as possible Patient Language: [place] Prescriptions: No Action diltiazem HCl 120 mg Capsule,Extended Release 24 Hr 120 mg PO QAM Qty: 30 0RF Follow-up/Referrals: Clara,THONG Hummel [Primary Care Provider] - Time of Disposition: 00:45
[2025-01-03 00:49] LABS: Free T4 Free Thyroxine Reflex 1.05 ng/dL (0.78-2.19)
[2025-01-03 01:09] VITALS: BP 119/85; PULSE 103; RESP 15; O2SAT 100
[2025-01-03 01:53] LABS: Total Triiodothyronine (T3) 1.44 NG/ML (0.97-1.69)
== END 2025-01-03 01:11 | disposition home or self-care (01) ==
PROVIDERS: Emergency Provider Emergency Medicine; PCP Nurse Practitioner
DX: I48.91 Unspecified atrial fibrillation (principal); Z79.899 Other long term (current) drug therapy; I45.10 Unspecified right bundle-branch block; R00.0 Tachycardia, unspecified
CPT/HCPCS: 36415; 71045; 80053; 83690; 83735; 84439; 84443; 84480; 84484; 85025; 85610; 85730; 93005; 99284